=== PATIENT | male | born 1965 | race American Indian/Alaskan Native ===

== ENCOUNTER 2018-03-10 00:51 | Emergency (ER) | payer MEDICARE ==
[2018-03-10 02:06] VITALS: BP 134/106
[2018-03-10] MEDS ORDERED: XOPENEX IH ONE (02:37)
[2018-03-10] MEDS ORDERED: ATROVENT IH ONE (02:37)
--- NOTE | 2018-03-10 02:41 | Emergency Department Report ---
ED Shortness of Breath HPI - General Chief Complaint: Dyspnea/Respdistress Stated Complaint: COUGH,SNEEZING,RUNNING NOSE/ASTHMA Time Seen by Provider: 03/10/18 02:34 Source: patient Mode of arrival: Ambulatory Limitations: No Limitations - History of Present Illness Initial Comments: Patient is 53 years old male with history of asthma, diabetes and hypertension. Patient presented to the ER with 3 day history of shortness of breath cough and congestion and wheezing. Patient stated that he has been using his albuterol treatment that not helping much. Patient denied any chest pain. Patient also denied any fever. MD Complaint: shortness of breath, cough, "asthma attack" -: days(s) Severity: moderate Known History Of: asthma, diabetes Context: recent URI Associated Symptoms: cough, sputum production - Related Data Home Medications Medication Instructions Recorded Confirmed Last Taken Metoprolol Tartrate 25 mg PO BID 09/11/13 05/22/14 05/21/14 Colchicine [Colcrys] 0.6 mg PO DAILY PRN 05/22/14 05/22/14 05/15/14 Febuxostat (Nf) [Uloric (Nf)] 40 mg PO DAILY 05/22/14 05/22/14 05/20/14 Hydrocodone Bitartrate [Zohydro ER] 5 mg PO BID PRN 05/22/14 05/22/14 05/15/14 metFORMIN [Glucophage] 500 mg PO DAILY 05/22/14 05/22/14 05/21/14 traMADol [Ultram 50 MG tab] 50 mg PO Q6HR PRN 05/22/14 05/22/14 05/15/14 Allergies Allergy/AdvReac Type Severity Reaction Status Date / Time No Known Allergies Allergy Verified 09/11/13 07:32 ED Review of Systems ROS: Stated complaint: COUGH,SNEEZING,RUNNING NOSE/ASTHMA Other details as noted in HPI Comment: All other systems reviewed and negative Constitutional: denies: chills, fever Respiratory: cough, shortness of breath, SOB with exertion, SOB at rest, wheezing. denies: orthopnea, stridor Cardiovascular: denies: chest pain, palpitations, dyspnea on exertion, orthopnea Gastrointestinal: denies: abdominal pain, nausea, vomiting, diarrhea, constipation, hematemesis, hematochezia Neurological: denies: headache, weakness, numbness, paresthesias, confusion ED Past Medical Hx - Past Medical History Previous Medical History?: Yes Hx Hypertension: Yes Hx Diabetes: Yes Hx Sickle Cell Disease: Yes Hx Arthritis: Yes (back, legs,knees,neck) Hx Asthma: Yes - Surgical History Past Surgical History?: No - Social History Smoking Status: Never Smoker Substance Use Type: None - Medications Home Medications: Home Medications Medication Instructions Recorded Confirmed Last Taken Type Metoprolol Tartrate 25 mg PO BID 09/11/13 05/22/14 05/21/14 History Colchicine [Colcrys] 0.6 mg PO DAILY PRN 05/22/14 05/22/14 05/15/14 History Febuxostat (Nf) [Uloric (Nf)] 40 mg PO DAILY 05/22/14 05/22/14 05/20/14 History Hydrocodone Bitartrate [Zohydro ER] 5 mg PO BID PRN 05/22/14 05/22/14 05/15/14 History metFORMIN [Glucophage] 500 mg PO DAILY 05/22/14 05/22/14 05/21/14 History traMADol [Ultram 50 MG tab] 50 mg PO Q6HR PRN 05/22/14 05/22/14 05/15/14 History ED Physical Exam - General Limitations: No Limitations General appearance: alert, in no apparent distress - Head Head exam: Present: atraumatic, normocephalic, normal inspection - Eye Eye exam: Present: normal appearance, PERRL - ENT ENT exam: Present: normal exam, normal orophraynx, mucous membranes moist - Neck Neck exam: Present: normal inspection, full ROM. Absent: tenderness, meningismus, lymphadenopathy, thyromegaly - Respiratory Respiratory exam: Present: wheezes, rhonchi, decreased breath sounds, prolonged expiratory. Absent: normal lung sounds bilaterally, respiratory distress, rales , stridor, accessory muscle use - Cardiovascular Cardiovascular Exam: Present: regular rate, normal rhythm, normal heart sounds - GI/Abdominal GI/Abdominal exam: Present: soft, normal bowel sounds. Absent: distended, tenderness, guarding, rebound, rigid, organomegaly, mass, bruit, pulsatile mass , hernia - Extremities Exam Extremities exam: Present: normal inspection, full ROM, normal capillary refill - Back Exam Back exam: Present: normal inspection, full ROM. Absent: tenderness, CVA tenderness (R), CVA tenderness (L), muscle spasm, paraspinal tenderness, vertebral tenderness - Neurological Exam Neurological exam: Present: alert, oriented X3, CN II-XII intact, normal gait, reflexes normal - Skin Skin exam: Present: warm, intact, normal color ED Course Vital Signs 03/10/18 03/10/18 03/10/18 02:03 02:47 03:06 Temperature 99.6 F Pulse Rate 61 Pulse Rate [ 112 H Anterior Bilateral Throughout] Respiratory 17 24 Rate Respiratory 22 Rate [Anterior Bilateral Throughout] Blood Pressure 134/106 O2 Sat by Pulse 95 93 Oximetry ED Medical Decision Making - Lab Data Result diagrams: 03/10/18 02:48 03/10/18 02:48 - EKG Data -: EKG Interpreted by Ny EKG shows normal: sinus rhythm Rate: tachycardia - EKG Data Interpretation: no acute changes - Radiology Data Radiology results: report reviewed Referring Physician: HARRIET GATES Patient Name: MARGIE HAN Date of : 1965 Sex: Male Report Date: 2018-03-10 Report Status: Finalized Findings [facility] [address] [place] [address] XRay Report Signed Patient: MARGIE HAN MR#: [id number] : 1965 Acct:[id number] Age/Sex: 53 / M ADM Date: 03/10/18 Loc: ED Attending Dr: Ordering Physician: HARRIET GATES Date of Service: 03/10/18 Procedure(s): XR chest routine 2V Accession Number(s): [id number] cc: HARRIET GATES Fluoro Time In Minutes: FINAL REPORT EXAM: XR CHEST ROUTINE 2V HISTORY: Shortness of breath TECHNIQUE: PA and lateral chest radiographs PRIORS: None. FINDINGS: Marked elevation left hemidiaphragm shifts the mediastinum to the right. No evident pneumoperitoneum. Cardiac silhouette is not enlarged. No pneumothorax. Left basilar atelectasis/scarring. No definite effusion or focal airspace disease within limits of this exam. No acute skeletal finding. IMPRESSION: Marked elevation left hemidiaphragm is of unknown chronicity and may or may not contribute to patient's symptoms. No additional potentially acute findings. Correlation with prior imaging is requested, if available. Consider additional imaging for worsening/persistent symptoms. Transcribed By: MB Dictated By: CARMENCITA REEDER MD Electronically Authenticated By: CARMENCITA REEDER MD Signed Date/Time: 03/10/18431 DD/ 1 TD/TT: 03/10/18431 - Medical Decision Making Patient stated that he is feeling much better. Lungs clear on both sides no wheezing. I strongly advised patient to follow with his primary care physician in the next 2-3 days and to return to the ER if his symptoms are not improving. Critical care attestation.: If time is entered above; I have spent that time in minutes in the direct care of this critically ill patient, excluding procedure time. ED Disposition Clinical Impression: Exacerbation of asthma Disposition: - TO HOME OR SELFCARE Is pt being admited?: No Condition: Stable Instructions: Asthma (ED) Referrals: SCHUYLER CEDEÑO [Other] - 3-5 Days
[2018-03-10 03:02] LABS: Basophils % (Auto) 0.5 % (0.0-1.8); Eosinophils # (Auto) 0.1 K/mm3 (0.0-0.4); Hematocrit 39.4 % (35.5-45.6); Lymphocytes # (Auto) 1.8 K/mm3 (1.2-5.4); Lymphocytes % (Auto) 23.7 % (13.4-35.0); Mean Corpuscular HGB Conc 33 % (32-34); Mean Corpuscular Hemoglobin 26 pg (28-32); Mean Corpuscular Volume 80 fl (84-94); Monocytes # (Auto) 0.6 K/mm3 (0.0-0.8); Monocytes % (Auto) 7.3 % (0.0-7.3); Platelet Count 260 K/mm3 (140-440); Red Blood Count 4.91 M/mm3 (3.65-5.03); Red Cell Distribution Width 16.3 % (13.2-15.2)
[2018-03-10] MEDS ORDERED: ROBITUSSIN AC PO ONE (03:15)
[2018-03-10 03:50] LABS: BUN/Creatinine Ratio 10; Blood Urea Nitrogen 15 mg/dL (9-20); Calcium 8.9 mg/dL (8.4-10.2); Hemolysis Index 3
--- NOTE | 2018-03-10 04:37 | XRay Report ---
FINAL REPORT EXAM: XR CHEST ROUTINE 2V HISTORY: Shortness of breath TECHNIQUE: PA and lateral chest radiographs PRIORS: None. FINDINGS: Marked elevation left hemidiaphragm shifts the mediastinum to the right. No evident pneumoperitoneum. Cardiac silhouette is not enlarged. No pneumothorax. Left basilar atelectasis/scarring. No definite effusion or focal airspace disease within limits of this exam. No acute skeletal finding. IMPRESSION: Marked elevation left hemidiaphragm is of unknown chronicity and may or may not contribute to patient's symptoms. No additional potentially acute findings. Correlation with prior imaging is requested, if available. Consider additional imaging for worsening/persistent symptoms.
== END 2018-03-10 05:30 | disposition home or self-care (01) ==
LOC: ED 00:51
DX: J45.901 Unspecified asthma with (acute) exacerbation (principal); E11.9 Type 2 diabetes mellitus without complications; I10 Essential (primary) hypertension
CPT/HCPCS: 36415; 71046; 80048; 83880; 84484; 85025; 93005; 93010; 94640; 96372; 99284; J2930

== ENCOUNTER 2018-10-17 03:15 | Emergency (ER) | payer MEDICARE ==
[2018-10-17 03:50] LABS: Basophils % (Auto) 0.4 % (0.0-1.8); Eosinophils % (Auto) 0.1 % (0.0-4.3); Hematocrit 41.2 % (35.5-45.6); Hemoglobin 13.1 gm/dl (11.8-15.2); Lymphocytes % (Auto) 13.8 % (13.4-35.0); Mean Corpuscular HGB Conc 32 % (32-34); Mean Corpuscular Volume 80 fl (84-94); Monocytes # (Auto) 0.6 K/mm3 (0.0-0.8); Monocytes % (Auto) 8.3 % (0.0-7.3); Platelet Count 197 K/mm3 (140-440); Red Blood Count 5.17 M/mm3 (3.65-5.03); Red Cell Distribution Width 16.9 % (13.2-15.2)
[2018-10-17 03:55] LABS: Mean Corpuscular Hemoglobin 25 pg (28-32)
[2018-10-17 04:02] LABS: Alanine Aminotransferase 23 units/L (7-56); Albumin 4.3 g/dL (3.9-5); BUN/Creatinine Ratio 8; Blood Urea Nitrogen 10 mg/dL (9-20); Calcium 9.2 mg/dL (8.4-10.2); Hemolysis Index 5
[2018-10-17] MEDS ORDERED: NACL 0.9% 1000 ML 1,000 ML IV ONE (04:42)
[2018-10-17] MEDS ORDERED: MORPHINE IV ONE (04:42)
[2018-10-17] MEDS ORDERED: ZOFRAN IV ONE (04:42)
[2018-10-17] MEDS ORDERED: TORADOL IV ONE (04:42)
--- NOTE | 2018-10-17 05:22 | XRay Report ---
FINAL REPORT EXAM: XR CHEST ROUTINE 2V HISTORY: syncope, cough TECHNIQUE: PA and lateral chest radiographs PRIORS: 03/10/2018 FINDINGS: Chronic elevation of the left hemidiaphragm and rightward shift of the mediastinum is unchanged. No p neumothorax, effusion, or focal airspace disease identified. No pneumoperitoneum or acute skeletal fi nding. IMPRESSION: No acute pulmonary abnormality identified. Chronic elevation of the left hemidiaphragm and rightward shift of the mediastinum appear unchanged from prior.
--- NOTE | 2018-10-17 06:13 | Emergency Department Report ---
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 Patient states he also has a cough as well. Patient states that sometimes he coughs so hard that he becomes nauseous and has had 2 episodes of syncope. Patient states he's had a fever as well. Patient states pain with swallowing as 8 out of 10 in severity. - Related Data Home Medications Medication Instructions Recorded Confirmed Last Taken Metoprolol Tartrate 25 mg PO BID 09/11/13 05/22/14 05/21/14 Colchicine [Colcrys] 0.6 mg PO DAILY PRN 05/22/14 05/22/14 05/15/14 Febuxostat (Nf) [Uloric (Nf)] 40 mg PO DAILY 05/22/14 05/22/14 05/20/14 Hydrocodone Bitartrate [Zohydro ER] 5 mg PO BID PRN 05/22/14 05/22/14 05/15/14 metFORMIN [Glucophage] 500 mg PO DAILY 05/22/14 05/22/14 05/21/14 traMADol [Ultram 50 MG tab] 50 mg PO Q6HR PRN 05/22/14 05/22/14 05/15/14 Previous Rx's Medication Instructions Recorded Last Taken Type Prednisone [predniSONE (Candy) ER 40 mg PO QDAY #40 tablet 03/10/18 Unknown Rx TAB] guaiFENesin/CODEINE [Robitussin AC] 10 ml PO TID PRN #100 ml 03/10/18 Unknown Rx Allergies Allergy/AdvReac Type Severity Reaction Status Date / Time No Known Allergies Allergy Verified 09/11/13 07:32 ED Review of Systems ROS: Stated complaint: SORETHROAT Other details as noted in HPI Comment: All other systems reviewed and negative ED Past Medical Hx - Past Medical History Previous Medical History?: Yes Hx Hypertension: Yes Hx Diabetes: Yes Hx Sickle Cell Disease: Yes Hx Arthritis: Yes (back, legs,knees,neck) Hx Asthma: Yes - Surgical History Past Surgical History?: No - Social History Smoking Status: Never Smoker Substance Use Type: None - Medications Home Medications: Home Medications Medication Instructions Recorded Confirmed Last Taken Type Metoprolol Tartrate 25 mg PO BID 09/11/13 05/22/14 05/21/14 History Colchicine [Colcrys] 0.6 mg PO DAILY PRN 05/22/14 05/22/14 05/15/14 History Febuxostat (Nf) [Uloric (Nf)] 40 mg PO DAILY 05/22/14 05/22/14 05/20/14 History Hydrocodone Bitartrate [Zohydro ER] 5 mg PO BID PRN 05/22/14 05/22/14 05/15/14 History metFORMIN [Glucophage] 500 mg PO DAILY 05/22/14 05/22/14 05/21/14 History traMADol [Ultram 50 MG tab] 50 mg PO Q6HR PRN 05/22/14 05/22/14 05/15/14 History Prednisone [predniSONE (Candy) ER 40 mg PO QDAY #40 tablet. 03/10/18 Unknown Rx TAB] guaiFENesin/CODEINE [Robitussin AC] 10 ml PO TID PRN #100 ml 03/10/18 Unknown Rx ED Physical Exam - General Limitations: No Limitations General appearance: alert, in no apparent distress - Head Head exam: Present: atraumatic, normocephalic - Eye Eye exam: Present: normal appearance - ENT ENT exam: Present: mucous membranes moist. Absent: normal orophraynx (patient with diffuse pharyngeal erythema with no exudates) - Neck Neck exam: Present: normal inspection, lymphadenopathy - Respiratory Respiratory exam: Present: normal lung sounds bilaterally. Absent: respiratory distress, wheezes, rales, rhonchi, stridor - Cardiovascular Cardiovascular Exam: Present: regular rate, normal rhythm. Absent: systolic murmur, diastolic murmur, rubs, gallop - GI/Abdominal GI/Abdominal exam: Present: soft, normal bowel sounds. Absent: distended, tenderness, guarding, rebound - Rectal Rectal exam: Present: deferred - Extremities Exam Extremities exam: Present: normal inspection - Back Exam Back exam: Present: normal inspection - Neurological Exam Neurological exam: Present: alert, oriented X3 - Psychiatric Psychiatric exam: Present: normal affect, normal mood - Skin Skin exam: Present: warm, dry, intact, normal color. Absent: rash ED Course Vital Signs 10/17/18 03:19 Temperature 100.5 F H Pulse Rate 62 Respiratory 20 Rate Blood Pressure 153/89 O2 Sat by Pulse 92 Oximetry ED Medical Decision Making - Lab Data Result diagrams: 10/17/18 03:31 10/17/18 03:31 - Radiology Data Patient: MARGIE HAN MR#: [id number] : 1965 Acct:[id number] Age/Sex: 53 / M ADM Date: 10/17/18 Loc: ED Attending Dr: Ordering Physician: JACKIE GÓMEZ MD Date of Service: 10/17/18 Procedure(s): XR chest routine 2V Accession Number(s): [id number] cc: JACKIE GÓMEZ MD Fluoro Time In Minutes: FINAL REPORT EXAM: XR CHEST ROUTINE 2V HISTORY: syncope, cough TECHNIQUE: PA and lateral chest radiographs PRIORS: 03/10/2018 FINDINGS: Chronic elevation of the left hemidiaphragm and rightward shift of the mediastinum is unchanged. No pneumothorax, effusion, or focal airspace disease identified. No pne umoperitoneum or acute skeletal finding. IMPRESSION: No acute pulmonary abnormality identified. Chronic elevation of the left hemidiaphragm and rightward shift of the mediastinum appear unchanged from prior. Transcribed By: MB Dictated By: CARMENCITA REEDER MD Electronically Authenticated By: CARMENCITA REEDER MD Signed Date/Time: 10/17/18521 DD/ 3 - Medical Decision Making Patient received IV fluids secondary to his syncope. Patient likely with a vasovagal syncope from his cough and vomiting however he has not ate or drank in the last 2 days secondary to sore throat. Patient has a rapid strep and a rapid flu pending. Chest x-ray shows no acute process. Critical care attestation.: If time is entered above; I have spent that time in minutes in the direct care of this critically ill patient, excluding procedure time. ED Disposition Clinical Impression: Pharyngitis Condition: Stable Referrals: PRIMARY CARE, [Primary Care Provider] - 3-5 Days
[2018-10-17 07:29] VITALS: BP 144/106
[2018-10-17 07:35] LABS: Bacteria,Urine 3+ /HPF (Negative); Bilirubin,Urine NEG (Negative); Blood,Urine SM (Negative); Color,Urine Yellow (Yellow); Mucus,Urine FEW /HPF; Urobilinogen,Urine < 2.0 mg/dL (<2.0)
== END 2018-10-17 07:31 | disposition home or self-care (01) ==
LOC: ED 03:15
DX: J02.9 Acute pharyngitis, unspecified (principal); R55 Syncope and collapse; I10 Essential (primary) hypertension; E11.9 Type 2 diabetes mellitus without complications; M54.9 Dorsalgia, unspecified; M79.605 Pain in left leg; M79.604 Pain in right leg; M25.562 Pain in left knee; M25.561 Pain in right knee; M54.2 Cervicalgia
CPT/HCPCS: 36415; 71046; 80053; 81001; 85025; 87116; 87400; 87430; 93005; 93010; 96361; 96374; 96375; 99284; J1885; J2270; J2405; J7030